=== PATIENT | female | born 1995 | race Caucasian/White ===

== ENCOUNTER → 2017-08-19 17:32 | Observation (INO) ==
[2017-08-19 15:17] LABS: Bilirubin,Urine Small (Negative); Blood,Urine Negative (Negative); Clarity,Urine Cloudy (Clear); Color,Urine Dark Yellow (Yellow); Glucose,Urine (UA) Normal (Normal); Ketones,Urine Negative (Negative); Leukocyte Esterase,Urine Small (Negative); Nitrite,Urine Negative (Negative); PH,Urine 6.5 pH Units (5.0-8.0); Protein,Urine Trace mg/dL (Neg-Trace); Specific Gravity,Urine 1.025 (1.010-1.025)
[2017-08-19 15:23] LABS: Bacteria,Urine Few per hpf (None-Few); Hyaline Casts,Urine None Seen per lpf (None-Few); RBC,Urine 0-3 per hpf (0-3); Squamous Epithelial Cell,Urine Many per lpf (None-Few)
[2017-08-19 15:57] LABS: Amphetamine Screen,Urine Negative ng/mL (Cutoff=1000); Barbiturate Screen,Urine Negative ng/mL (Cutoff=200); Benzodiazepines Screen,Urine Negative ng/mL (Cutoff=200); Cannabinoid Screen,Urine Negative ng/mL (Cutoff = 50); Cocaine Screen,Urine Negative ng/mL (Cutoff= 300); Opiate Screen,Urine Negative ng/mL (Cutoff=300); Phencyclidine Screen,Urine Negative ng/mL (Cutoff=25)
--- NOTE | 2017-08-19 17:13 | OB/GYN Progress Note ---
Date of Encounter: 08/19/17 Time of Encounter: 17:11 - Assessment and Plan (1) 34 weeks gestation of Current Visit: Yes Status: Acute (2) uterine contractions in third trimester, antepartum Current Visit: Yes Status: Acute Cervical exam remains unchanged on serial exams 2 hours apart. Patient states contractions have stopped since she has been here. Patient discharged home with labor and when to return to triage for evaluation section precautions. Patient verbalizes understanding Subjective - Subjective Interval history: 34+0 presents to triage with complaints of contractions while driving up to [facility] for an ultrasound. Recent states while she was driving she was having contractions 3-4 minutes apart. Reports good movement, denies leaking of fluid or vaginal bleeding. No history of labor. Patient was on way to [facility] for evaluation of choroid plexus cyst. otherwise uncomplicated. Patient with care of MELISSA Hassan Antepartum ROS: movement normal, contractions, no loss of fluid, no vaginal bleeding Objective - Vital Signs Vital Signs: Intake and Output 08/19/17 08/19/17 08/19/17 07:59 15:59 23:59 Other: Weight 77.6 kg Patient Weight 08/19/17 23:59 Weight 77.6 kg - Exam FHR: auscultation normal FHR comments: baseline 135 Abdomen: Present: soft, gravid Cervical dilation: 375/-3 - Labs Labs: Abnormal lab results Urine Clarity Cloudy (Clear) A 08/19/17 15:00 Urine Bilirubin Small (Negative) H 08/19/17 15:00 Urine Urobilinogen 2.0 mg/dL (Normal) H 08/19/17 15:00 Ur Leukocyte Esterase Small (Negative) H 08/19/17 15:00 Urine Microscopic WBC 5-15 per hpf (0-3) H 08/19/17 15:00 Ur Squamous Epith Cells Many per lpf (None-Few) H 08/19/17 15:00 Ur Culture Indicated? NO. (NO) A 08/19/17 15:00
== END | disposition home or self-care (01) ==
LOC: 1NENULAB
PROVIDERS: ADMIT Obstetrics & Gynecology; ATTEND Obstetrics & Gynecology